=== PATIENT | female | born 1935 | race Caucasian/White ===

== ENCOUNTER 2017-11-28 07:01 | Emergency (ER) | payer OTHER ==
[~2017-11-28] VITALS: Ht 157.5 cm; Wt 68.0 kg
[~2017-11-28 07:01] MED LIST: ADULT LOW DOSE81 MG PO; ASPIRIN81 M2 PO; BONIVA; CALCIUM OYSTER500 MG PO; CIPROFLOXACIN500 M3 PO; CLARITIN10 MG; COREG PO; COUMADIN 2.5MG2.5 M1 PO; LOPRESSOR25 PO; MAXZIDE 75-501 EACH PO; POTASSIUM CHLORIDE PO; THERA-M CAPLET1 EACH PO; TRAMADOL 50 MG50 MG PO; TRIAMTERENE-HC1 EAC3 PO; VITAMIN D400 UNI1 PO
[2017-11-28] MEDS ORDERED: XARELTO20 MG PO (07:15)
[2017-11-28 07:43] LABS: ABSOLUTE BASOPHILS 0.1 thou/uL (0.0-0.2); ABSOLUTE EOSINOPHILS 0.2 thou/uL (0.0-0.7); ABSOLUTE LYMPHOCYTES 1.8 thou/uL (0.8-5.3); ABSOLUTE MONOCYTES 0.7 thou/uL (0.0-1.2); ABSOLUTE NEUTROPHILS 3.6 thou/uL (1.6-8.1); BASOPHILS 0.9 %; EOSINOPHILS 2.8 %; HEMATOCRIT 43.8 % (37.0-47.0); MCH 31.6 pg (26.0-34.0); MCHC 34.1 g/dL (28.0-37.0); MCV 92.6 fL (80.0-100.0); MPV 8.5 fl. (7.2-11.1); NUCLEATED RBCS 0 /100WBC; PLATELET COUNT* 258 thou/uL (150-400); POLYS 56.3 %; RBC 4.73 mil/uL (4.20-5.00); RDW-CV 14.6 % (10.5-14.5); WBC 6.4 thou/uL (4.0-11.0)
[2017-11-28 07:50] LABS: CALCIUM 9.7 mg/dL (8.5-10.1); POTASSIUM 3.7 mmol/L (3.5-5.1)
[2017-11-28 07:54] LABS: APTT 66.4 Seconds (25.0-31.3); INR 1.4; PROTIME 13.4 Seconds (9.20-11.50)
[2017-11-28 10:47] VITALS: BP 161/89
== END 2017-11-28 10:47 | disposition home or self-care (01) ==
LOC: M.ERS 07:01
PROVIDERS: Family Medicine
DX: R04.0 Epistaxis (principal); M19.90 Unspecified osteoarthritis, unspecified site; I10 Essential (primary) hypertension; M81.0 Age-related osteoporosis without current pathological fracture; M79.7 Fibromyalgia; I48.91 Unspecified atrial fibrillation; Z90.89 Acquired absence of other organs; Z88.8 Allergy status to other drugs, medicaments and biological substances

== ENCOUNTER 2017-11-28 15:27 | Emergency (ER) | payer OTHER ==
[~2017-11-28] VITALS: Ht 157.5 cm; Wt 68.0 kg
[~2017-11-28 15:27] MED LIST changes: +XARELTO20 MG PO
[2017-11-28 15:55] LABS: ABSOLUTE BASOPHILS 0.1 thou/uL (0.0-0.2); ABSOLUTE EOSINOPHILS 0.1 thou/uL (0.0-0.7); ABSOLUTE LYMPHOCYTES 1.9 thou/uL (0.8-5.3); ABSOLUTE MONOCYTES 0.7 thou/uL (0.0-1.2); ABSOLUTE NEUTROPHILS 9.7 thou/uL (1.6-8.1); BASOPHILS 0.7 %; EOSINOPHILS 0.5 %; HEMATOCRIT 43.5 % (37.0-47.0); HEMOGLOBIN 14.7 gm/dL (12.0-15.0); LYMPHOCYTES 15.5 %; MCH 31.9 pg (26.0-34.0); MCHC 33.8 g/dL (28.0-37.0); MCV 94.3 fL (80.0-100.0); MONOCYTES 5.8 %; MPV 8.4 fl. (7.2-11.1); NUCLEATED RBCS 0 /100WBC; PLATELET COUNT* 261 thou/uL (150-400); POLYS 77.5 %; RBC 4.61 mil/uL (4.20-5.00); RDW-CV 14.2 % (10.5-14.5); WBC 12.5 thou/uL (4.0-11.0)
[2017-11-28 16:05] LABS: CALCIUM 9.6 mg/dL (8.5-10.1); CREATININE 1.1 mg/dL (0.6-1.3); POTASSIUM 3.3 mmol/L (3.5-5.1)
[2017-11-28 16:07] LABS: APTT 53.9 Seconds (25.0-31.3); INR 1.3; PROTIME 12.2 Seconds (9.20-11.50)
[2017-11-28 16:15] LABS: ALBUMIN 3.5 g/dL (3.4-5.0); TOTAL BILIRUBIN 0.4 mg/dL (<0.1-1.0); TOTAL PROTEIN 7.2 g/dL (6.4-8.2)
[2017-11-28 18:17] VITALS: BP 184/89
== END 2017-11-28 18:18 | disposition home or self-care (01) ==
LOC: M.ERS 15:27
PROVIDERS: Family Medicine
DX: R04.0 Epistaxis (principal); I10 Essential (primary) hypertension; I48.91 Unspecified atrial fibrillation; M79.7 Fibromyalgia; M19.90 Unspecified osteoarthritis, unspecified site; Z88.6 Allergy status to analgesic agent

== ENCOUNTER → 2018-08-13 | Outpatient (CLI) | payer OTHER | LOC: M.RAD 11:00 | DX: Z12.31 Encounter for screening mammogram for malignant neoplasm of breast (principal) ==

== ENCOUNTER → 2019-02-06 | Outpatient (CLI) | payer OTHER | LOC: M.WC 07:53 | DX: I87.312 Chronic venous hypertension (idiopathic) with ulcer of left lower extremity (principal); L97.822 Non-pressure chronic ulcer of other part of left lower leg with fat layer exposed; I48.91 Unspecified atrial fibrillation; M19.90 Unspecified osteoarthritis, unspecified site; Z98.49 Cataract extraction status, unspecified eye; Z96.659 Presence of unspecified artificial knee joint; Z86.73 Personal history of transient ischemic attack (TIA), and cerebral infarction without residual deficits ==

== ENCOUNTER → 2019-02-10 | Outpatient (CLI) | payer OTHER | LOC: M.WC 00:22 | DX: I87.312 Chronic venous hypertension (idiopathic) with ulcer of left lower extremity (principal); L97.821 Non-pressure chronic ulcer of other part of left lower leg limited to breakdown of skin; S51.812D Laceration without foreign body of left forearm, subsequent encounter; I48.91 Unspecified atrial fibrillation; M19.90 Unspecified osteoarthritis, unspecified site; Z86.73 Personal history of transient ischemic attack (TIA), and cerebral infarction without residual deficits; W19.XXXD Unspecified fall, subsequent encounter ==

== ENCOUNTER → 2019-02-13 | Outpatient (CLI) | payer OTHER | LOC: M.WC 00:29 | DX: I87.312 Chronic venous hypertension (idiopathic) with ulcer of left lower extremity (principal); L97.822 Non-pressure chronic ulcer of other part of left lower leg with fat layer exposed; S51.812D Laceration without foreign body of left forearm, subsequent encounter; I48.91 Unspecified atrial fibrillation; M19.90 Unspecified osteoarthritis, unspecified site; Z86.73 Personal history of transient ischemic attack (TIA), and cerebral infarction without residual deficits; W19.XXXD Unspecified fall, subsequent encounter ==

== ENCOUNTER → 2019-02-20 | Outpatient (CLI) | payer OTHER | LOC: M.WC 04:32 | DX: I87.312 Chronic venous hypertension (idiopathic) with ulcer of left lower extremity (principal); L97.821 Non-pressure chronic ulcer of other part of left lower leg limited to breakdown of skin; S51.812D Laceration without foreign body of left forearm, subsequent encounter; I87.2 Venous insufficiency (chronic) (peripheral); I48.91 Unspecified atrial fibrillation; M19.90 Unspecified osteoarthritis, unspecified site; Z86.73 Personal history of transient ischemic attack (TIA), and cerebral infarction without residual deficits; X58.XXXD Exposure to other specified factors, subsequent encounter ==

== ENCOUNTER → 2019-02-25 | Outpatient (CLI) | payer OTHER | LOC: M.WC 04:57 | DX: I87.312 Chronic venous hypertension (idiopathic) with ulcer of left lower extremity (principal); L97.821 Non-pressure chronic ulcer of other part of left lower leg limited to breakdown of skin; S51.802D Unspecified open wound of left forearm, subsequent encounter; I87.2 Venous insufficiency (chronic) (peripheral); I48.91 Unspecified atrial fibrillation; M19.90 Unspecified osteoarthritis, unspecified site; Z86.73 Personal history of transient ischemic attack (TIA), and cerebral infarction without residual deficits; X58.XXXD Exposure to other specified factors, subsequent encounter ==

== ENCOUNTER → 2019-03-06 | Outpatient (CLI) | payer OTHER | LOC: M.WC 04:05 | DX: I87.312 Chronic venous hypertension (idiopathic) with ulcer of left lower extremity (principal); L97.828 Non-pressure chronic ulcer of other part of left lower leg with other specified severity; I48.91 Unspecified atrial fibrillation; M19.90 Unspecified osteoarthritis, unspecified site; Z86.73 Personal history of transient ischemic attack (TIA), and cerebral infarction without residual deficits ==

== ENCOUNTER → 2019-07-27 | Outpatient (CLI) | payer OTHER ==
[2019-07-27 10:26] LABS: CREATININE 1.1 mg/dL (0.6-1.3)
== END ==
LOC: M.LAB 09:57 → M.CT 11:00
PROVIDERS: Internal Medicine
DX: M47.812 Spondylosis without myelopathy or radiculopathy, cervical region (principal); K14.6 Glossodynia; J31.2 Chronic pharyngitis; J98.4 Other disorders of lung; Z88.8 Allergy status to other drugs, medicaments and biological substances

== ENCOUNTER 2020-05-06 13:46 | Emergency (ER) | payer MEDICARE ==
[~2020-05-06] VITALS: Ht 152.4 cm; Wt 66.2 kg
[2020-05-06] MEDS ORDERED: CIPRO500 M1 PO (14:06)
[2020-05-06 14:11] LABS: URINE BILIRUBIN NEGATIVE (Negative); URINE BLOOD NEGATIVE (Negative); URINE CLARITY CLEAR; URINE COLOR YELLOW; URINE GLUCOSE-RANDOM NEGATIVE (Negative); URINE KETONES NEGATIVE (Negative); URINE LEUKOCYTES-REFLEX NEGATIVE (Negative); URINE NITRITE-REFLEX NEGATIVE (Negative); URINE PROTEIN TRACE (Negative); URINE SPECIFIC GRAVITY 1.015 (1.005-1.030); URINE UROBILINOGEN 0.2 E.U./dl (0.2-1.0)
[2020-05-06 14:28] LABS: ABSOLUTE BASOPHILS 0.1 thou/uL (0.0-0.2); ABSOLUTE LYMPHOCYTES 1.3 thou/uL (0.8-5.3); ABSOLUTE MONOCYTES 0.8 thou/uL (0.0-1.2); ABSOLUTE NEUTROPHILS 9.6 thou/uL (1.6-8.1); BASOPHILS 0.9 %; EOSINOPHILS 0.3 %; HEMATOCRIT 43.3 % (37.0-47.0); HEMOGLOBIN 14.7 gm/dL (12.0-15.0); LYMPHOCYTES 11.1 %; MCHC 33.8 g/dL (28.0-37.0); MCV 94.6 fL (80.0-100.0); MONOCYTES 6.5 %; NUCLEATED RBCS 0 /100WBC; PLATELET COUNT* 234 thou/uL (150-400); POLYS 81.2 %; RBC 4.58 mil/uL (4.20-5.00); RDW-CV 14.6 % (10.5-14.5); WBC 11.8 thou/uL (4.0-11.0)
[2020-05-06 14:37] LABS: CREATININE 1.3 mg/dL (0.6-1.3); POTASSIUM 3.6 mmol/L (3.5-5.1)
[2020-05-06 14:41] LABS: ALBUMIN 3.6 g/dL (3.4-5.0); TOTAL BILIRUBIN 0.6 mg/dL (<0.1-1.0); TOTAL PROTEIN 7.4 g/dL (6.4-8.2)
--- NOTE | 2020-05-06 15:07 | EKG ---
[place] [address] ELECTROCARDIOGRAM REPORT Name: FELICIA FLORIAN Room: [facility]#: [id number] Admission: 05/06/20 Attend Phys: Discharge: Date of : 33 Date of Service: 05/06/20 1411 Report #: [id number] THIS REPORT FOR: //name// [facility] ED Test Date: 2020-05-06 Test Time: 14:11:58 Pat Name: FELICIA FLORIAN Department: Room: Gender: F Site Monitor: : 1935 Requested By: Nicole Bates Order Number: [id number] MD: Elio Becerra Measurements Intervals Nancy Rate: 81 P: CA: QRS: -24 QRSD: 90 T: 5 QT: 388 QTc: 451 Interpretive Statements Atrial fibrillation Borderline left axis deviation Minimal ST depression, inferior leads Baseline wander in lead(s) II,III,aVR,aVL,aVF,V6 Compared to ECG 02/07/2015 15:57:28 no change Electronically Signed On 05-06-2020 15:07:39 CDT by Elio Becerra [email or web address] <ELECTRONICALLY SIGNED> By: Elio Becerra MD, [facility] 05/06/20 1507 141 141 Elio Becerra MD, [facility] /EPI
[2020-05-06] MEDS ORDERED: LIDOCAINE VISC100 ML SWISH&SPIT (15:31)
[2020-05-06] MEDS ORDERED: OMEPRAZOLE40 MG PO (17:54)
[2020-05-06 18:13] VITALS: BP 189/100
== END 2020-05-06 18:14 | disposition home or self-care (01) ==
LOC: M.ERS 13:46
PROVIDERS: Physician Assistant
DX: K13.79 Other lesions of oral mucosa (principal); R10.11 Right upper quadrant pain

== ENCOUNTER → 2021-04-04 | Outpatient (CLI) | payer MEDICARE ==
[~2021-04-04] MED LIST changes: +CIPRO500 M1 PO; +LIDOCAINE VISC100 ML SWISH&SPIT; +OMEPRAZOLE40 MG PO
== END ==
LOC: M.RAD 12:49
PROVIDERS: ATTEND Internal Medicine
DX: M17.12 Unilateral primary osteoarthritis, left knee (principal); R22.42 Localized swelling, mass and lump, left lower limb; V89.2XXA Person injured in unspecified motor-vehicle accident, traffic, initial encounter